=== PATIENT | male | born 1960 | race Asian ===

== ENCOUNTER 2023-03-20 11:10 | Emergency (ER) | payer SELFPAY ==
[2023-03-20 11:25] VITALS: BP 173/92; PULSE 88; RESP 18; TEMP 36.6; O2SAT 98; BMI 21.3
--- NOTE | 2023-03-20 11:30 | DI.RAD.S_ITS ---
PROCEDURE: XR CHEST 1V INDICATIONS: cough TECHNIQUE: One view of the chest was acquired. COMPARISON: None. FINDINGS: Surgical changes and devices: None. Lungs and pleura: Lungs are clear. No pleural effusions or pneumothorax. Mediastinum: Mediastinal contours appear normal. Heart size is normal. Bones and chest wall: No suspicious bony lesions. Overlying soft tissues appear unremarkable. IMPRESSION: Portable chest within normal limits for age. Approved by: Adrian Angulo M.D. on 03/20/2023 at 12:00
--- NOTE | 2023-03-20 11:41 | ED.URI ---
HPI - URI/Sore Throat <HARMAN Silvestre Last Filed: 03/20/23 13:12> General Chief Complaint: Upper Respiratory Symptoms Stated Complaint: SOB/ cough Time Seen by Provider: 03/20/23 11:41 Source: patient Mode of arrival: Ambulatory History of Present Illness HPI Narrative: This is a 63-year-old male presents emergency department due to a productive cough for the last 4 days. He denies any chest pain but does report some shortness of breath. Denies any hemoptysis. Denies any fevers, nausea, vomiting, or any other concerning signs or symptoms. Does report some sinus congestion. Related Data Previous Rx's Medication Instructions Recorded albuterol sulfate 90 mcg/actuation 1 inh inhalation Q4-6H PRN 03/20/23 breath activated powder shortness of breath #1 ea inhaler,sensor (Proair Digihaler) Allergies Allergy/AdvReac Type Severity Reaction Status Date / Time No Known Drug Allergies Allergy Verified 03/20/23 11:30 Review of Systems <HARMAN Silvestre Last Filed: 03/20/23 13:12> Review of Systems Narrative: GENERAL: Denies chills, fatigue, malaise, fever, sweats. HEENT: Denies sinus pain, ear pain, sore throat, difficulty swallowing, dizziness. RESPIRATORY: Reports dyspnea, cough, denies wheezing, hemoptysis, sputum. CARDIOVASCULAR: Denies chest pain, palpitations, orthopnea, edema, GASTROINTESTINAL: Denies nausea, vomiting, abdominal pain, diarrhea, constipation, melena. : Denies dysuria, frequency, incontinence, hematuria, urinary retention. MUSCULOSKELETAL: denies weakness, joint pain, or bony pain SKIN: Denies rash, skin lesions, or other NEUROLOGIC: Denies weakness, headache, numbness, change in speech, confusion, seizures, incoordination. PSYCHIATRIC: No concerning psychosocial issues. 12 point review of systems is negative except for those stated above Patient History <HARMAN Silvestre Last Filed: 03/20/23 13:12> Social History Smoking Status: Never smoker Smoking Status: Never smoker alcohol intake frequency: a few times a month Substance Use Type: does not use Exam <HARMAN Silvestre Last Filed: 03/20/23 13:12> Narrative Exam Narrative: GENERAL: Well-developed patient, in mild distress. HEAD: Atraumatic. Normocephalic. EYES: Pupils equal round and reactive. Extraocular motions intact. No scleral icterus. No injection or drainage. ENT: Nose without bleeding, purulent drainage. Throat without erythema, tonsillar hypertrophy or exudate. Airway patent. NECK: Trachea midline. Non tender CARDIOVASCULAR: Regular rate and rhythm without murmurs, gallops, or rubs. RESPIRATORY: Faint bilateral wheezes, no rhonchi GASTROINTESTINAL: Abdomen soft, non-tender, nondistended. EXTREMITIES: No edema or joint tenderness. BACK: Nontender without deformity or crepitance. No flank tenderness. NEURO: AOx3. SKIN: No rash or erythema of visible areas Initial Vital Signs Initial Vital Signs: Vital Signs Temperature 97.9 F 03/20/23 11:25 Pulse Rate 88 03/20/23 11:25 Respiratory Rate 18 03/20/23 11:25 Blood Pressure 173/92 H 03/20/23 11:25 Pulse Oximetry 98 03/20/23 11:25 Oxygen Delivery Method Room Air 03/20/23 11:25 <Haven Peters DO - Last Filed: 03/20/23 18:40> Initial Vital Signs Initial Vital Signs: Vital Signs Temperature 97.9 F 03/20/23 11:25 Pulse Rate 88 03/20/23 11:25 Respiratory Rate 18 03/20/23 11:25 Blood Pressure 173/92 H 03/20/23 11:25 Pulse Oximetry 98 03/20/23 11:25 Oxygen Delivery Method Room Air 03/20/23 11:25 Course <Eulogio Paredes PA-C - Last Filed: 03/20/23 13:12> Orders Ordered: ED Orders 03/20/23 11:30 XR chest 1V Stat 03/20/23 11:50 Covid-19 + FLU A/B + RSV - PCR Stat Vital Signs Vital signs: Vital Signs - 8 hr 03/20/23 11:25 03/20/23 13:29 Temperature 97.9 F Pulse Rate 88 84 Respiratory Rate 18 16 Blood Pressure 173/92 H 168/78 H Pulse Oximetry 98 97 Oxygen Delivery Method Room Air Room Air <Haven Peters DO - Last Filed: 03/20/23 18:40> Orders Ordered: ED Orders 03/20/23 11:30 XR chest 1V Stat 03/20/23 11:50 Covid-19 + FLU A/B + RSV - PCR Stat Vital Signs Vital signs: Vital Signs - 8 hr 03/20/23 11:25 03/20/23 13:29 Temperature 97.9 F Pulse Rate 88 84 Respiratory Rate 18 16 Blood Pressure 173/92 H 168/78 H Pulse Oximetry 98 97 Oxygen Delivery Method Room Air Room Air MDM - URI/Sore Throat <Eulogio Paredes PA-C - Last Filed: 03/20/23 13:12> Lab Data Labs: Lab Results 03/20/23 Range/Units 11:50 SARS-CoV-2 (PCR) Negative (Negative) Influenza A (RT-PCR) Flu a negative (NEGATIVE) Influenza B (RT-PCR) Flu b negative (NEGATIVE) RSV (PCR) Negative (Negative) Imaging Data Chest x-ray: Radiologist's Impression: [address] [address] XRay Report Signed Patient: Anson Galeana MR#: [id number] : 1960 Acct:[id number] Age/Sex: 63 / M Date of Service: 03/20/23 Loc: ED Accession Number: [id number] Procedure: XR chest 1V Ordering Provider: Haven Peters D.O. PROCEDURE: XR CHEST 1V INDICATIONS: cough TECHNIQUE: One view of the chest was acquired. COMPARISON: None. FINDINGS: Surgical changes and devices: None. Lungs and pleura: Lungs are clear. No pleural effusions or pneumothorax. Mediastinum: Mediastinal contours appear normal. Heart size is normal. Bones and chest wall: No suspicious bony lesions. Overlying soft tissues appear unremarkable. IMPRESSION: Portable chest within normal limits for age. Approved by: Adrian Angulo M.D. on 03/20/2023 at 12:00 MDM Narrative Medical decision making narrative: MDM * differential diagnosis includes but not limited to pneumonia, URI, asthma exacerbation, PE * Prior records reviewed: Patient has not been to this emergency department in the past * My lab interpretation: Testing negative for COVID, influenza, RSV * My imgaing interpretation: Chest x-ray negative for pneumonia * Clinical Decision Rules/Scores evaluated: None * Independent discussions with: None ED Course: This is a 63-year-old male presents emergency department due to slightly increased shortness of breath as well as a cough. He did present with slight bilateral wheezing on prescribe an albuterol inhaler for him to use at home. Chest x-ray negative for pneumonia or other abnormalities. COVID, influenza, RSV testing negative. Suspect viral URI and self-limiting. Shared Decision Making: Discussed plan with the patient who is comfortable with the plan. Social Considerations: None Disposition: Discharged to home <Haven Peters DO - Last Filed: 03/20/23 18:40> Lab Data Labs: Lab Results 03/20/23 Range/Units 11:50 SARS-CoV-2 (PCR) Negative (Negative) Influenza A (RT-PCR) Flu a negative (NEGATIVE) Influenza B (RT-PCR) Flu b negative (NEGATIVE) RSV (PCR) Negative (Negative) Discharge Plan Departure Patient Disposition: Home Clinical Impression: Upper respiratory infection Activity Restrictions/Additional Instructions: Thank you for coming to the [facility] Emergency Department today. As we discussed your chest x-ray was negative for pneumonia or other lung abnormalities. Your COVID, influenza, and RSV testing was negative. She would have some wheezing when I listened to her lungs. Please use the albuterol inhaler as needed to help with the breathing. I sent your medication to [facility] in [place]. I hope you feel better soon. Please follow up with your primary care provider within a week if your symptoms continue. If you do not have a primary care provider please contact the [facility] Resource line at [phone]. They will ask some questions about your medical history and help you get set up with a provider in the community. Prescriptions: New Proair Digihaler 90 mcg/actuation aero powdr breath act w/sensor 1 inh inhalation Q4-6H PRN (Reason: shortness of breath) Qty: 1 0RF Referrals: Miscellaneous,Doctor, MD [Primary Care Provider] - Stand Alone Forms: Patient Portal/API ED Sign-out <Haven Peters DO - Last Filed: 03/20/23 18:40> Cosign ED Attending Baileyature Attestation: I was immediately available in the department for consultation. Documentation has been reviewed.
[2023-03-20 12:35] LABS: Influenza A - CEPHEID Flu A NEGATIVE (NEGATIVE); Influenza B - CEPHEID Flu B NEGATIVE (NEGATIVE); Respiratory Syncytial Virus Negative (Negative)
[2023-03-20 12:42] LABS: COVID-19 CEPHEID 4-PLEX PCR Negative (Negative)
[2023-03-20 13:29] VITALS: BP 168/78; PULSE 84; RESP 16; O2SAT 97
== END 2023-03-20 13:30 | disposition home or self-care (01) ==
PROVIDERS: Emergency Provider Physician Assistant Medical
DX: J06.9 Acute upper respiratory infection, unspecified (principal)
CPT/HCPCS: 0241U; 71045; 99281; 99283